=== PATIENT | female | born 1955 ===

== ENCOUNTER 2023-04-12 15:05 | Outpatient (REF) | payer MEDICARE, MEDICAID, SELFPAY | END 2023-04-12 15:06 | disposition home or self-care (01) | LOC: HO.SH 15:05 | PROVIDERS: Visit Provider Physician Assistant | DX: Z01.118 Encounter for examination of ears and hearing with other abnormal findings (principal); H90.6 Mixed conductive and sensorineural hearing loss, bilateral | CPT/HCPCS: 92553; 92555; 92567 ==

== ENCOUNTER 2023-06-29 15:33 | Outpatient (REF) | payer MEDICARE, MEDICAID, SELFPAY ==
--- NOTE | 2023-06-29 16:50 | MHC.AU.HA1 ---
Hearing Aid Evaluation Date of Visit: 06/29/23 Nail Tech Used: Family member: brother Historical Information: Description of Hearing: Right ear: severe rising to moderately severe mixed hearing loss Left ear: moderate to moderately severe mixed hearing loss Summary: Aura visited with her brother to discuss hearing aids after receiving medical clearance from ENT. She states she previously wore custom hearing aids and preferred them over the BTE style amplifiers she tried after losing/breaking her custom aids. Discussed custom styles, selected Virto P90 ITCs due to severity of hearing loss and very narrow ear canals. She would prefer disposable batteries. No user controls needed. Impressions taken without incident. Will order and call patient once they arrive. Hearing Aid Prescription: Based on the individual?s shared listening needs, communication environments, dexterity, desire for connectivity, and personal preferences, the following prescription for amplification has been made: Right ear: Make, Model, Color: Virto P90 312 ITC Battery Size: 312 Youth Worker/Slim Tube: Type of Earmold/Dome/CShell/SlimTip: Left ear: Left ear prescription to be same as Right Hearing Aid above: Make, Model, Color: Virto P90 312 ITC Battery Size: Youth Worker/Slim Tube: Type of Earmold/Dome/CShell/SlimTip: Accessories/Assistive Technology Recommended: Plan of Care: Patient wishes to purchase hearing aids as prescribed Action Taken/Action Needed: Earmold Impressions Taken Hearing Instrument Fitting to be scheduled when materials arrive Primary Diagnosis: H90.6 Mixed Hearing Loss, Bilateral Signature: Provider: Luz Marina Wiseman, CCC-A
== END 2023-06-29 15:34 | disposition home or self-care (01) ==
LOC: HO.HAP 15:33
PROVIDERS: Visit Provider Otolaryngology
DX: Z46.1 Encounter for fitting and adjustment of hearing aid (principal); H90.6 Mixed conductive and sensorineural hearing loss, bilateral
CPT/HCPCS: 92591; V5275

== ENCOUNTER 2023-07-26 15:10 | Outpatient (REF) | payer MEDICARE, MEDICAID, SELFPAY ==
--- NOTE | 2023-07-26 15:56 | MHC.AU.HA2 ---
Hearing Instrument Fitting- Adult- Binaural Date of Visit: 07/26/22 Hearing Instruments Dispensed: Right Ear: Make, Model, Color, Serial Number: Virto P90 312 ITC SN [id number] Preprint Analyst Repair Warranty: 10/06/2026 Preprint Analyst Loss and Damage Warranty: 10/06/2026 [facility] Service Plan: Battery Size: 312 Type of Wax Guard: CeruStop Left Ear: Make, Model, Color, Serial Number: Virto P90 312 ITC SN [id number] Preprint Analyst Repair Warranty: 10/06/2026 Preprint Analyst Loss and Damage Warranty: 10/06/2026 [facility] Service Plan: Battery Size: 312 Type of Wax Guard: CeruStop Accessories/Assistive Technology: Summary of Fitting: Aura visited for fitting with Virto P90 312 ITCs. She is an experienced hearing aid user. Programmed and verified to NAL-NL2 real ear targets. VC active per pt request. Reviewed cleaning, batteries, wax guard use. Follow up scheduled for 3 weeks. Recommendations: Recommendations: A hearing instrument follow-up was scheduled. Diagnosis Code(s): Primary Diagnosis: H90.6 Mixed Hearing Loss, Bilateral Signature: Provider: Luz Marina Wiseman, CCC-A
== END 2023-07-26 15:11 | disposition home or self-care (01) ==
LOC: HO.HAP 15:10
PROVIDERS: PCP Physician Assistant; Visit Provider Otolaryngology
DX: Z46.1 Encounter for fitting and adjustment of hearing aid (principal); H90.6 Mixed conductive and sensorineural hearing loss, bilateral
CPT/HCPCS: V5011; V5020; V5160; V5259

== ENCOUNTER 2023-08-17 15:04 | Outpatient (REF) | payer MEDICARE, MEDICAID, SELFPAY ==
--- NOTE | 2023-08-17 16:36 | MHC.AU.HA3 ---
Hearing Instrument Follow-Up- Binaural Date of Visit: 08/17/23 Right Ear: Make, Model, Color, Serial Number: Virto P90 312 ITC SN [id number] Contract Law Specialist Repair Warranty: 10/06/2026 Contract Law Specialist Loss and Damage Warranty: 10/06/2026 [facility] Service Plan: 07/26/24 Battery Size: 312 Type of Wax Guard: CeruStop Dispensed By: [facility] Date of Fittin07/26/23 Left Ear: Make, Model, Color, Serial Number: Virto P90 312 ITC SN [id number] Contract Law Specialist Repair Warranty: 10/06/2026 Contract Law Specialist Loss and Damage Warranty: 10/06/2026 [facility] Service Plan: 07/26/24 Battery Size: 312 Type of Wax Guard: CeruStop Dispensed By: [facility] Date of Fittin08/05/23 Follow-Up Summary: Aura visited for fitting follow up, reports overall satisfaction with the hearing aids. No adjustments needed, no further questions at this time. Her son prefers to call for appointments moving forward as they have busy schedules. Recommendations: Recommendations: Hearing instrument follow-up or maintenance as needed. Diagnosis Code(s): Primary Diagnosis: H90.3 Bilateral Sensorineural Hearing Loss Signature: Provider: Luz Marina Wiseman, CCC-A
== END 2023-08-17 15:05 | disposition home or self-care (01) ==
LOC: HO.HAP 15:04
PROVIDERS: PCP Physician Assistant; Visit Provider Otolaryngology
DX: Z13.89 Encounter for screening for other disorder (principal)